=== PATIENT | female | born 1985 | race African-American/Black ===

== ENCOUNTER 2020-02-10 20:19 | Emergency (ER) | payer MEDICAID ==
[~2020-02-10] VITALS: Ht 165.1 cm; Wt 136.0 kg
[2020-02-10] MEDS ORDERED: MORPHINE SULFATE 4 MG/ML CPJ (NOT FOR IM USE) IV STA (20:40)
[2020-02-10] MEDS ORDERED: ONDANSETRON HCL 4MG/2ML INJ IV STA (20:40)
[2020-02-10 23:07] LABS: BASOPHILS % 0.5 % (0.0-2.0); EOSINOPHILS % 0.5 % (0.0-5.0); HEMATOCRIT. 47.8 % (36.0-48.0); HEMOGLOBIN. 15.3 g/dL (12.0-16.0); LYMPHOCYTES % 25.8 % (20.0-50.0); MEAN CORPUSCULAR HEMOGLOBIN 25.7 pg (28.0-32.0); MEAN CORPUSCULAR VOLUME 80.5 fL (81.0-99.0); MONOCYTES % 3.4 % (2.0-8.0); NEUTROPHILS % 69.8 % (40.0-76.0); PLATELET 330 x1000/uL (130-400); RED BLOOD CELL COUNT 5.93 mill/uL (4.2-5.4); RED CELL DISTRIBUTION WIDTH 14.9 % (11.6-14.6)
[2020-02-10 23:13] LABS: CHLORIDE 103 mEq/L (98-107)
[2020-02-10 23:15] LABS: PROTHROMBIN TIME 10.7 sec (9.6-11.0)
[2020-02-10 23:18] LABS: ETHANOL BLOOD < 10 mg/dL
[2020-02-10 23:21] LABS: HCG SCREEN NEGATIVE
[2020-02-11 01:56] VITALS: BP 142/80
== END 2020-02-11 01:57 | disposition home or self-care (01) ==
LOC: ER 20:19
DX: R10.9 Unspecified abdominal pain (principal); E11.65 Type 2 diabetes mellitus with hyperglycemia
CPT/HCPCS: 36415; 74176; 80053; 80320; 82962; 83690; 84703; 85025; 85610; 96374; 96375; 99284; J2270; J2405; G0480